=== PATIENT | female | born 1940 | race Asian ===

== ENCOUNTER → 2018-04-08 09:05 | Outpatient (CLI) | payer MEDICARE, SELFPAY ==
[2018-04-08 10:16] LABS: Hemoglobin A1C% w Est Avg Glu 7.3 % (4.0-6.0)
== END ==
PROVIDERS: PCP Internal Medicine; Visit Provider Internal Medicine
DX: E11.9 Type 2 diabetes mellitus without complications (principal)
CPT/HCPCS: 36415; 83036

== ENCOUNTER → 2018-04-14 13:34 | Outpatient (CLI) | payer MEDICARE, SELFPAY | PROVIDERS: PCP Internal Medicine; Visit Provider Internal Medicine | DX: M85.852 Other specified disorders of bone density and structure, left thigh (principal); Z78.0 Asymptomatic menopausal state | CPT/HCPCS: 77080 ==

== ENCOUNTER → 2018-07-05 08:24 | Outpatient (CLI) | payer MEDICARE, SELFPAY ==
[2018-07-05 09:03] LABS: Hemoglobin A1C% w Est Avg Glu 7.6 % (4.0-6.0)
== END ==
PROVIDERS: PCP Internal Medicine; Visit Provider Internal Medicine
DX: R73.09 Other abnormal glucose (principal)
CPT/HCPCS: 36415; 83036

== ENCOUNTER → 2018-10-11 09:19 | Outpatient (CLI) | payer MEDICARE, SELFPAY ==
[2018-10-11 10:34] LABS: Alanine Aminotransferase 46 IU/L (9-52); Albumin 4.4 g/dL (3.5-5.0); Albumin Globulin Ratio 1.3 (1.0-2.8); Alkaline Phosphatase 52 U/L (38-126); Aspartate Aminotransferase 50 IU/L (14-36); Bilirubin Total 0.6 mg/dL (0.2-1.3); Blood Urea Nitrogen 19 mg/dL (7-17); Calcium 9.5 mg/dL (8.4-10.2); Carbon Dioxide 27 mmol/L (22-32); Chloride 101 mmol/L (98-107); Cholesterol 184 mg/dL (140-199); Estimated Glomerular Filt Rate 53.5 mL/min (>60); Globulin 3.3 g/dL (1.7-4.1); Glucose 147 mg/dL (80-110); HDL Cholesterol 41 mg/dL (40-60); HEMOLYSIS < 15 (0-50); LDL Cholesterol Calculated 75 mg/dL (<100); Potassium 4.2 mmol/L (3.4-5.1); Sodium 138 mmol/L (137-145); Total Protein 7.7 g/dL (6.3-8.2); Triglycerides 339 mg/dL (35-150)
[2018-10-11 10:35] LABS: Hemoglobin A1C% w Est Avg Glu 7.6 % (4.0-6.0)
== END ==
PROVIDERS: PCP Internal Medicine; Visit Provider Internal Medicine
DX: I10 Essential (primary) hypertension (principal); E11.9 Type 2 diabetes mellitus without complications; E78.5 Hyperlipidemia, unspecified
CPT/HCPCS: 36415; 80053; 80061; 83036

== ENCOUNTER → 2019-05-09 07:27 | Outpatient (CLI) | payer MEDICARE, SELFPAY ==
[2019-05-09 08:38] LABS: HEMOLYSIS < 15 (0-50); Sodium 139 mmol/L (137-145)
[2019-05-09 08:40] LABS: Alanine Aminotransferase 38 IU/L (9-52); Aspartate Aminotransferase 51 IU/L (14-36); Blood Urea Nitrogen 17 mg/dL (7-17); Calcium 10.2 mg/dL (8.4-10.2); Carbon Dioxide 28 mmol/L (22-32); Chloride 100 mmol/L (98-107); Cholesterol 154 mg/dL (140-199); Estimated Glomerular Filt Rate 53.5 mL/min (>60); Glucose 186 mg/dL (80-110); HDL Cholesterol 42 mg/dL (40-60); LDL Cholesterol Calculated 64 mg/dL (<100); Potassium 4.6 mmol/L (3.4-5.1); Triglycerides 238 mg/dL (35-150)
== END ==
PROVIDERS: PCP Internal Medicine; Visit Provider Internal Medicine
DX: I10 Essential (primary) hypertension (principal); E78.5 Hyperlipidemia, unspecified
CPT/HCPCS: 36415; 80048; 80061; 84450; 84460

== ENCOUNTER → 2019-11-08 08:42 | Outpatient (CLI) | payer MEDICARE, SELFPAY ==
[2019-11-08 11:07] LABS: Alanine Aminotransferase 33 IU/L (<35); Albumin 4.7 g/dL (3.5-5.0); Albumin Globulin Ratio 1.4 (1.0-2.8); Alkaline Phosphatase 57 U/L (38-126); Aspartate Aminotransferase 48 IU/L (14-36); BUN Creatinine Ratio 13.3 (6-22); Bilirubin Total 0.9 mg/dL (0.2-1.3); Blood Urea Nitrogen 14 mg/dL (7-17); Calcium 10.1 mg/dL (8.4-10.2); Carbon Dioxide 27 mmol/L (22-32); Chloride 100 mmol/L (98-107); Cholesterol 178 mg/dL (140-199); Estimated Glomerular Filt Rate 50.4 mL/min (>60); Globulin 3.4 g/dL (1.7-4.1); Glucose 109 mg/dL (80-110); HDL Cholesterol 45 mg/dL (40-60); HEMOLYSIS < 15 (0-50); LDL Cholesterol Calculated 86 mg/dL (<100); Potassium 4.7 mmol/L (3.4-5.1); Sodium 138 mmol/L (137-145); Total Protein 8.1 g/dL (6.3-8.2); Triglycerides 234 mg/dL (35-150)
[2019-11-08 12:36] LABS: Hemoglobin A1C% w Est Avg Glu 7.7 % (4.0-6.0)
== END ==
PROVIDERS: PCP Internal Medicine; Referring Provider Internal Medicine; Visit Provider Internal Medicine
DX: I10 Essential (primary) hypertension (principal); E78.5 Hyperlipidemia, unspecified; E11.9 Type 2 diabetes mellitus without complications
CPT/HCPCS: 36415; 80053; 80061; 83036

== ENCOUNTER → 2020-02-08 15:56 | Outpatient (CLI) | payer MEDICARE, SELFPAY ==
[2020-02-08 17:24] LABS: Creatinine Urine Random 59.1 mg/dL
[2020-02-08 17:25] LABS: Microalbumi Creatinin Ratio Ur 30.4 ug/mg CR (<30); Microalbumin Urine Random 1.8 mg/dL (0-1.6)
[2020-02-09 15:20] LABS: Hemoglobin A1C% w Est Avg Glu 7.8 % (4.0-6.0)
== END ==
PROVIDERS: PCP Internal Medicine; Referring Provider Internal Medicine; Visit Provider Internal Medicine
DX: E11.9 Type 2 diabetes mellitus without complications (principal)
CPT/HCPCS: 36415; 82043; 82570; 83036

== ENCOUNTER → 2020-03-01 16:10 | Outpatient (ROUT) | payer MEDICARE, SELFPAY | PROVIDERS: PCP Internal Medicine; Visit Provider Internal Medicine | DX: N39.0 Urinary tract infection, site not specified (principal) | CPT/HCPCS: 87077; 87086; 87186 ==

== ENCOUNTER → 2020-07-30 14:36 | Outpatient (CLI) | payer MEDICARE, SELFPAY ==
[2020-07-30 15:30] LABS: Hemoglobin A1C% w Est Avg Glu 8.3 % (4.0-6.0)
[2020-07-30 16:08] LABS: Creatinine Urine Random 36.5 mg/dL
[2020-07-30 16:10] LABS: Microalbumi Creatinin Ratio Ur 112.3 ug/mg CR (<30); Microalbumin Urine Random 4.1 mg/dL (0-1.6)
== END ==
PROVIDERS: PCP Internal Medicine; Referring Provider Internal Medicine; Visit Provider Internal Medicine
DX: E11.9 Type 2 diabetes mellitus without complications (principal)
CPT/HCPCS: 36415; 82043; 82570; 83036

== ENCOUNTER → 2020-10-25 07:22 | Outpatient (CLI) | payer MEDICARE, SELFPAY ==
[2020-10-25 08:24] LABS: Hemoglobin A1C% w Est Avg Glu 8.4 % (4.0-6.0)
[2020-10-25 08:32] LABS: Alanine Aminotransferase 34 IU/L (<35); Albumin 4.3 g/dL (3.5-5.0); Albumin Globulin Ratio 1.3 (1.0-2.8); Alkaline Phosphatase 69 U/L (38-126); Aspartate Aminotransferase 44 IU/L (14-36); BUN Creatinine Ratio 15.4 (6-22); Bilirubin Total 0.6 mg/dL (0.2-1.3); Blood Urea Nitrogen 16 mg/dL (7-17); Calcium 10.1 mg/dL (8.4-10.2); Carbon Dioxide 28 mmol/L (22-32); Chloride 102 mmol/L (98-107); Cholesterol 170 mg/dL (140-199); Estimated Glomerular Filt Rate 50.9 mL/min (>60); Globulin 3.2 g/dL (1.7-4.1); Glucose 126 mg/dL (80-110); HDL Cholesterol 45 mg/dL (40-60); HEMOLYSIS < 15 (0-50); LDL Cholesterol Calculated 78 mg/dL (<100); Potassium 4.4 mmol/L (3.4-5.1); Sodium 137 mmol/L (137-145); Total Protein 7.5 g/dL (6.3-8.2); Triglycerides 235 mg/dL (35-150)
== END ==
PROVIDERS: PCP Internal Medicine; Referring Provider Internal Medicine; Visit Provider Internal Medicine
DX: E11.40 Type 2 diabetes mellitus with diabetic neuropathy, unspecified (principal); E78.5 Hyperlipidemia, unspecified; I10 Essential (primary) hypertension
CPT/HCPCS: 36415; 80053; 80061; 83036

== ENCOUNTER → 2021-04-27 08:23 | Outpatient (CLI) | payer MEDICARE, SELFPAY ==
[2021-04-27 09:36] LABS: Hemoglobin A1C% w Est Avg Glu 7.7 % (4.0-6.0)
== END ==
PROVIDERS: PCP Internal Medicine; Referring Provider Internal Medicine; Visit Provider Internal Medicine
DX: E11.40 Type 2 diabetes mellitus with diabetic neuropathy, unspecified (principal)
CPT/HCPCS: 36415; 83036

== ENCOUNTER 2022-01-09 21:30 | Emergency (ER) | payer MEDICARE, SELFPAY ==
[2022-01-09 21:38] VITALS: BP 195/84; PULSE 76; RESP 16; TEMP 36.6; O2SAT 100; BMI 22.7
--- NOTE | 2022-01-09 21:47 | DI.RAD.S_ITS ---
PROCEDURE: XR CHEST 1V INDICATIONS: chest pain TECHNIQUE: One view of the chest was acquired. COMPARISON: [facility], , CHEST 2 VIEW, 12/26/2013, 9:36. FINDINGS: Surgical changes and devices: None. Lungs and pleura: Lungs are clear. No pleural effusions or pneumothorax. Mediastinum: Mediastinal contours appear normal. Heart size is normal. Bones and chest wall: No suspicious bony lesions. Overlying soft tissues redemonstrate peripherally calcified bilateral breast implants. IMPRESSION: 1. No acute cardiopulmonary disease. Dictated by: Nolberto Dumont M.D. on 01/09/2022 at 22:38 Approved by: Nolberto Dumont M.D. on 01/09/2022 at 22:39
[2022-01-09 22:01] VITALS: PULSE 74; RESP 19; O2SAT 99
[2022-01-09 22:02] VITALS: BP 171/79; PULSE 74; RESP 17; O2SAT 98
[2022-01-09 22:08] LABS: Add Manual Diff / Slide Review NO; Alanine Aminotransferase 49 IU/L (<35); Albumin 4.3 g/dL (3.5-5.0); Albumin Globulin Ratio 1.3 (1.0-2.8); Alkaline Phosphatase 54 U/L (38-126); Aspartate Aminotransferase 63 IU/L (14-36); BUN Creatinine Ratio 22.3 (6-22); Basophils Absolute Auto 0 /uL (0-100); Basophils Percent Auto 0.7 % (0-2); Bilirubin Total 0.5 mg/dL (0.2-1.3); Blood Urea Nitrogen 23 mg/dL (7-17); Calcium 9.1 mg/dL (8.4-10.2); Carbon Dioxide 26 mmol/L (22-32); Chloride 104 mmol/L (98-107); Creatine Kinase 494 U/L (30-135); Eosinophils Absolute Auto 100 /uL (0-450); Estimated Glomerular Filt Rate 54 mL/min (>60); Globulin 3.4 g/dL (1.7-4.1); Glucose 168 mg/dL (80-110); HEMOLYSIS < 15 (0-50); Hematocrit 36.2 % (36-46); Hemoglobin 12.6 g/dL (12.0-16.0); Lipase 170 U/L (23-300); Lymphocytes Absolute Auto 2100 /uL (1100-4500); Lymphocytes Percent Auto 37.8 % (25-40); Magnesium 1.8 mg/dL (1.6-2.3); Mean Corpuscular HGB Conc 34.8 % (30-36); Mean Corpuscular Hemoglobin 31.3 PG (26-34); Mean Corpuscular Volume 90.1 fL (80-100); Monocytes Absolute Auto 500 /uL (0-900); Monocytes Percent Auto 9.5 % (3-14); Neutrophils Absolute Auto 2800 /uL (1500-7000); Platelet Count 246 X10^3/uL (150-400); Potassium 4.5 mmol/L (3.4-5.1); Red Blood Cell Count 4.02 X10^6/uL (4.0-5.2); Red Cell Distribution Width 13.3 % (11.6-14.8); Sodium 138 mmol/L (137-145); Total Protein 7.7 g/dL (6.3-8.2); White Blood Cell Count 5.5 X10^3/uL (4.5-11.0)
[2022-01-09 22:19] LABS: Troponin I < 0.012 ng/mL (0.01-0.034)
[2022-01-09 22:23] LABS: CKMB % Relative Index 1.3 % (1.5-5.0); Creatine Kinase MB 6.47 ng/mL (<2.37)
[2022-01-09 22:30] VITALS: BP 172/72; PULSE 70; RESP 12; O2SAT 100
[2022-01-09 23:00] VITALS: BP 191/79; PULSE 68; RESP 16; O2SAT 95
[2022-01-09 23:30] VITALS: BP 170/74; PULSE 67; RESP 15; O2SAT 95
[2022-01-10] VITALS: BP 166/77; PULSE 64; RESP 17; O2SAT 100
[2022-01-10 00:30] VITALS: BP 169/78; PULSE 65; RESP 23; O2SAT 100
[2022-01-10 01:00] VITALS: BP 177/79; PULSE 69; RESP 18; O2SAT 100
--- NOTE | 2022-01-10 01:04 | ED_ITS ---
HPI - Chest Pain General Chief Complaint: Chest Pain Stated Complaint: fall, chest pain, dmII Time Seen by Provider: 01/10/22 01:04 Source: patient Mode of arrival: Ambulatory Limitations: no limitations History of Present Illness HPI narrative: 81-year-old will with a history of diabetes, hyperlipidemia, hypothyroidism, no prior history of stroke or heart attack presents complaining of chest pain. She describes it as a single fleeting episode occurring at 5:00 p.m. this afternoon while she was sitting down. It started in her central chest radiating up to both shoulders and then resolved. She has not having recurrent symptoms. She noted that her blood pressure was slightly elevated time of 155/95. She describes node dyspnea, reflux symptoms. 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 She states that she has not yet taken her blood pressure medications, Micardis 40 mg, today either. She is having no additional symptoms or complaints at this point. No recent fevers, cough, chills, palpitations, vomiting, diarrhea, abdominal pain, lower extremity edema, headaches or acute neurologic symptoms. Related Data Home Medications Medication Instructions Recorded Confirmed CYANOCOBALAMIN (VITAMIN B-12) 1,000 mcg PO QDAY #0 05/18/12 GlyBURIDE (DIABETA) 10 mg PO QDAY #0 05/18/12 fenofibrate nanocrystallized 145 145 mg PO QDAY #0 05/18/12 mg tablet (Tricor) metformin 1,000 mg tablet 1,000 mg PO BIDCC #0 05/18/12 (Glucophage) paroxetine HCl 20 mg tablet (Paxil) 20 mg PO QDAY #0 05/18/12 telmisartan 40 mg tablet (Micardis) 40 mg PO QDAY #0 05/18/12 Allergies Allergy/AdvReac Type Severity Reaction Status Date / Time soy Allergy Mild SOY MILK Unverified 12/02/17 11:54 codeine AdvReac Unknown Unverified 12/02/17 11:54 Review of Systems Review of Systems Narrative: Remainder of complete review of systems is otherwise unremarkable except for that included in the HPI. Patient History Medical History Diabetes Hyperlipidemia Hypertension Ovarian cancer Social History Smoking Status: Never smoker Smoking Status: Never smoker alcohol intake frequency: 0-2 drinks per day Substance Use Type: does not use Exam Initial Vital Signs Initial Vital Signs: Vital Signs Temperature 97.8 F 01/09/22 21:38 Pulse Rate 76 01/09/22 21:38 Respiratory Rate 16 01/09/22 21:38 Blood Pressure 195/84 H 01/09/22 21:38 Pulse Oximetry 100 01/09/22 21:38 General: Healthy appearing, in no acute distress. Able to give a complete and coherent history. Well-nourished well-developed HEENT: Moist mucous membranes, normal sclera with reactive pupils, Neck: No JVD, supple Respiratory: Lungs are clear to auscultation, no wheezing no rales no rhonchi. Full and symmetrical air movement Cardiac: Regular rate and rhythm no murmurs no bruits Abdomen: Soft, nontender, good bowel tones, no flank pain Skin: Warm and dry, no rashes Neurologic: Grossly neurologically intact with no obvious asymmetries or abnormalities Extremities: No trauma, well perfused Psych: Cooperative, appropriate insight and affect Course Orders Ordered: ED Orders 01/09/22 21:47 XR chest 1V Stat 01/09/22 21:48 Complete Blood Count AUTO DIFF Stat Comprehensive Metabolic Panel Stat Lipase Stat Magnesium Stat Troponin & CK Cardiac Panel Stat 01/09/22 21:53 EKG-12 Lead Stat Vital Signs Vital signs: Vital Signs - 8 hr 01/09/22 21:38 Temperature 97.8 F Pulse Rate 76 Respiratory Rate 16 Blood Pressure 195/84 H Pulse Oximetry 100 MDM - Chest Pain Lab Data Result diagrams: 01/09/22 21:48 01/09/22 21:48 Labs: Lab Results 01/09/22 01/09/22 Range/Units 21:48 21:48 WBC 5.5 (4.5-11.0) X10^3/uL RBC 4.02 (4.0-5.2) X10^6/uL Hgb 12.6 (12.0-16.0) g/dL Hct 36.2 (36-46) % MCV 90.1 (80-100) fL MCH 31.3 (26-34) PG MCHC 34.8 (30-36) % RDW 13.3 (11.6-14.8) % Plt Count 246 (150-400) X10^3/uL Neut % (Auto) 51.0 (50-75) % Lymph % (Auto) 37.8 (25-40) % Davidson % (Auto) 9.5 (3-14) % Eos % (Auto) 1.0 L (2-4) % Baso % (Auto) 0.7 (0-2) % Neut # (Auto) 2800 (1581-7201) /uL Lymph # (Auto) 2100 (1693-5226) /uL Davidson # (Auto) 500 (0-900) /uL Eos # (Auto) 100 (0-450) /uL Baso # (Auto) 0 (0-100) /uL Sodium 138 (137-145) mmol/L Potassium 4.5 (3.4-5.1) mmol/L Chloride 104 (98-107) mmol/L Carbon Dioxide 26 (22-32) mmol/L BUN 23 H (7-17) mg/dL Creatinine 1.03 (0.52-1.04) mg/dL Estimated GFR 54 L (>60) mL/min BUN/Creatinine Ratio 22.3 H (6-22) Glucose 168 H (80-110) mg/dL Calcium 9.1 (8.4-10.2) mg/dL Magnesium 1.8 (1.6-2.3) mg/dL Total Bilirubin 0.5 (0.2-1.3) mg/dL AST 63 H (14-36) IU/L ALT 49 H (<35) IU/L Alkaline Phosphatase 54 (38-126) U/L Total Creatine Kinase 494 H (30-135) U/L CK-MB (CK-2) 6.47 H (<2.37) ng/mL CK-MB (CK-2) Rel Index 1.3 L (1.5-5.0) % Troponin I < 0.012 (0.01-0.034) ng/mL Total Protein 7.7 (6.3-8.2) g/dL Albumin 4.3 (3.5-5.0) g/dL Globulin 3.4 (1.7-4.1) g/dL Albumin/Globulin Ratio 1.3 (1.0-2.8) Lipase 170 (23-300) U/L Imaging Data Chest x-ray: Radiologist's Impression: FINDINGS:? ? Surgical changes and devices:? None.? ? Lungs and pleura:? Lungs are clear.? No pleural effusions or pneumothorax.? ? Mediastinum:? Mediastinal contours appear normal.? Heart size is normal.? ? Bones and chest wall:? No suspicious bony lesions.? Overlying soft tissues redemonstrate peripherally calcified bilateral breast implants. ? IMPRESSION:? ? 1.? No acute cardiopulmonary disease. ? ? ? Dictated by: Nolberto Dumont M.D. on 01/09/2022 at 22:38? ?? ECG Data Interpretation: Sinus rhythm at a rate of 73 Normal interval, normal axis No acute ischemic changes MDM Narrative Medical decision making narrative: 81-year-old woman with multiple risk factors for cardiac disease presents after a fleeting episode of central chest pain. No recurrence. Entire workup is unremarkable with the exception of mildly elevated blood pressure with her blood pressure medication skipped today. No evidence of acute coronary syndrome, congestive heart failure, pneumothorax, pulmonary infiltrates, pneumonia, no concern for dissection with a normal diameter mediastinum. At this point reassurance is given it is safe for home discharge. I did recommend that she take her Micardis when she gets home this evening. I also suggested that she follow-up with her primary care physician. Discharge Plan Departure Patient Disposition: Home Clinical Impression: Atypical chest pain Hypertension Qualifiers: Hypertension type: primary hypertension Qualified Code(s): I10 - Essential (primary) hypertension Instructions: DI for Atypical Chest Pain Activity Restrictions/Additional Instructions: Thank you for coming in today With that fleeting episode of chest pain I am not finding any life-threatening diagnoses. Specifically you are not having a heart attack, you do not have pneumonia, there is no collapsed lung and there is no reason for hospitalization or further workup at this time. When you get home this evening, please take your Micardis/telmisartan/blood pressure medication. Please continue all of your usual medications. If you have recurrent symptoms, new findings or other concerns, please return to the ER Prescriptions: No Action metformin [Glucophage] 1,000 MG tablet 1,000 mg PO BIDCC Qty: 0 0RF paroxetine HCl [Paxil] 20 MG tablet 20 mg PO QDAY Qty: 0 0RF telmisartan [Micardis] 40 MG tablet 40 mg PO QDAY Qty: 0 0RF fenofibrate nanocrystallized [Tricor] 145 MG tablet 145 mg PO QDAY Qty: 0 0RF CYANOCOBALAMIN (VITAMIN B-12) 1,000 mcg PO QDAY Qty: 0 0RF GlyBURIDE (DIABETA) 10 mg PO QDAY Qty: 0 0RF Referrals: Gila Reyna MD [Primary Care Provider] -
[2022-01-10 01:30] VITALS: PULSE 64; RESP 21; O2SAT 100
[2022-01-10 01:31] VITALS: BP 171/75; PULSE 64; RESP 11; O2SAT 99
== END 2022-01-10 01:41 | disposition home or self-care (01) ==
PROVIDERS: Emergency Provider Emergency Medicine; PCP Internal Medicine
DX: R07.89 Other chest pain (principal); I10 Essential (primary) hypertension
CPT/HCPCS: 36415; 71045; 80053; 82550; 82553; 83690; 83735; 84484; 85025; 93005; 93010; 99283; 99284

== ENCOUNTER → 2022-02-19 07:38 | Outpatient (CLI) | payer MEDICARE, SELFPAY ==
--- NOTE | 2022-02-19 07:40 | DI.US.S_ITS ---
PROCEDURE: US ABDOMEN LIMITED INDICATIONS: RUQ PAIN TECHNIQUE: Real-time scanning was performed of the abdominal and retroperitoneal organs, with image documentation. COMPARISON: None. FINDINGS: Liver: Echogenic. No suspicious focal lesion visualized. Liver length of 13.0 cm. Gallbladder: No stones, wall thickening, or sonographic Washington's sign. Biliary ducts: Intrahepatic bile ducts are non-dilated. Extrahepatic bile duct caliber measures 3 mm. Normal is 6-7 mm or less in diameter, or 10 mm or less post-cholecystectomy. Pancreas: Visualized portions of the pancreas are sonographically normal. IMPRESSION: 1. No cholelithiasis or evidence of acute cholecystitis. 2. The liver is echogenic, a nonspecific finding commonly seen in the setting of steatosis. Dictated by: Tyler Dunaway M.D. on 02/19/2022 at 12:38 Approved by: Tyler Dunaway M.D. on 02/19/2022 at 12:43
== END ==
PROVIDERS: PCP Internal Medicine; Referring Provider Internal Medicine; Visit Provider Internal Medicine
DX: R10.13 Epigastric pain (principal); R10.11 Right upper quadrant pain
CPT/HCPCS: 76705

== ENCOUNTER 2023-04-25 11:20 | Emergency (ER) | payer OTHER, SELFPAY ==
[2023-04-25] VITALS (22 sets, daily range): BP systolic 133–180; BP diastolic 65–83; PULSE 65–87; RESP 12–28; TEMP 36.5; O2SAT 95–100
--- NOTE | 2023-04-25 11:25 | DI.RAD.S_ITS ---
PROCEDURE: XR PELVIS 1-2V INDICATIONS: trauma TECHNIQUE: 1 view(s) of the pelvis acquired. COMPARISON: [facility], CR, XR TIBIA FIBULA LT 2V, 04/25/2023, 11:30. [facility], CR, XR CHEST 1V, 04/25/2023, 11:30. [facility], CR, PELVIS WITH BILATERAL HIPS, 10/25/2012, 15:34. FINDINGS: Bones: No fractures or dislocations. No suspicious bony lesions. Degenerative changes are seen, particularly involving the visualized lower lumbar spine. Soft tissues: Visualized bowel gas pattern is normal. No suspicious soft tissue calcifications. IMPRESSION: No displaced fracture can be seen on this plain film study. Dictated by: Paulie James M.D. on 04/25/2023 at 10:57 Approved by: Paulie James M.D. on 04/25/2023 at 10:57
--- NOTE | 2023-04-25 11:25 | DI.RAD.S_ITS ---
PROCEDURE: XR TIBIA FIBULA LT 2V INDICATIONS: trauma, bruising, pain TECHNIQUE: 2 views of the tibia and fibula were acquired. COMPARISON: [facility], CR, XR CHEST 1V, 04/25/2023, 11:30. [facility], CR, XR PELVIS 1-2V, 04/25/2023, 11:30. FINDINGS: Bones: No fractures or dislocations. No suspicious bony lesions. Age-appropriate bony degenerative changes are seen. Soft tissues: No suspicious soft tissue calcifications or masses. IMPRESSION: Negative for displaced fracture. Dictated by: Paulie James M.D. on 04/25/2023 at 10:55 Approved by: Paulie James M.D. on 04/25/2023 at 10:56
--- NOTE | 2023-04-25 11:25 | DI.RAD.S_ITS ---
PROCEDURE: XR CHEST 1V INDICATIONS: trauma TECHNIQUE: One view of the chest was acquired. COMPARISON: [facility], , CHEST 2 VIEW, 12/26/2013, 9:36. [facility], CR, XR TIBIA FIBULA LT 2V, 04/25/2023, 11:30. [facility], CR, XR PELVIS 1-2V, 04/25/2023, 11:30. [facility], CR, XR CHEST 1V, 01/09/2022, 22:03. FINDINGS: Surgical changes and devices: Rim calcified mammoplasty implants are seen. Lungs and pleura: Lungs are clear. No pleural effusions or pneumothorax. Mediastinum: The cardiac contours are within normal limits. The aorta demonstrates calcification and tortuosity. Bones and chest wall: No displaced rib fracture is identified. No suspicious bony lesions. Age-appropriate bony degenerative changes are seen. Overlying soft tissues appear unremarkable. IMPRESSION: No displaced rib fracture is seen. No pneumothorax. Dictated by: Paulie James M.D. on 04/25/2023 at 10:56 Approved by: Paulie James M.D. on 04/25/2023 at 10:57
--- NOTE | 2023-04-25 11:26 | DI.CT.S_ITS ---
PROCEDURE: CT HEAD/BRAIN WO CON INDICATIONS: Trauma TECHNIQUE: Noncontrast 4.5 mm thick angled axial sections acquired from the foramen magnum to the vertex, with coronal and sagittal reformats. For radiation dose reduction, the following was used: automated exposure control, adjustment of mA and/or kV according to patient size. COMPARISON: [facility], MR, BRAIN WITH AND WITHOUT CONTRAS, 03/02/2009, 7:04. [facility], CT, CT CERVICAL SPINE WO CON, 04/25/2023, 11:44. FINDINGS: Image quality: Excellent. CSF spaces: Basal cisterns are patent. No extra-axial fluid collections. The ventricles are symmetric in size and shape. Brain: No intracranial bleeds or masses. There is cerebral volume loss for age, with resultant ventricular and sulcal prominence. There are periventricular and deep white matter chronic small vessel ischemic changes. There is intracranial internal carotid artery atherosclerosis. Skull and face: Calvarium and visualized facial bones appear intact, without suspicious lesions. Incidental note is made of hyperostosis frontalis. This is not considered to be pathologic in a woman of this age. Sinuses: Visualized sinuses and mastoids are clear. IMPRESSION: No acute intracranial hemorrhage is seen. No acute intracranial process is seen. Dictated by: Paulie James M.D. on 04/25/2023 at 11:23 Approved by: Paulie James M.D. on 04/25/2023 at 11:24
--- NOTE | 2023-04-25 11:26 | DI.CT.S_ITS ---
PROCEDURE: CT CERVICAL SPINE WO CON INDICATIONS: Trauma TECHNIQUE: Noncontrast 3 mm thick sections acquired from the skull base to the T4 level. Sagittal and coronal reformats were then constructed. For radiation dose reduction, the following was used: automated exposure control, adjustment of mA and/or kV according to patient size. COMPARISON: [facility], CT, CT HEAD/BRAIN WO CON, 04/25/2023, 11:44. [facility], CT, CT CHEST ABD PEL W CON, 04/25/2023, 11:44. [facility], CR, XR PELVIS 1-2V, 04/25/2023, 11:30. [facility], CR, XR CHEST 1V, 04/25/2023, 11:30. [facility], CR, XR TIBIA FIBULA LT 2V, 04/25/2023, 11:30. [facility], CT, C-SPINE WITHOUT CONTRAST, 12/26/2013, 9:25. FINDINGS: Image quality: Excellent. Bones: No fractures or dislocations. Visualized superior ribs are intact. There is vertebral body fusion seen at C5-C6. Mild disc space narrowing can be seen at C4-C5 and at C6-C7. Partially bridging anterior osteophytes can be seen at C4-C5, C6-C7, C7-T1, and T1-T2. 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 A T2 vertebral body hemangioma is incidentally noted. Soft tissues: Prevertebral soft tissues are normal in thickness. No paravertebral hematomas. No apical pneumothoraces. IMPRESSION: Negative for acute fracture. C5-C6 vertebral body fusion, as before. 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 Dictated by: Paulie James M.D. on 04/25/2023 at 12:30 Approved by: Paulie James M.D. on 04/25/2023 at 12:31
--- NOTE | 2023-04-25 11:26 | DI.CT.S_ITS ---
PROCEDURE: CT CHEST ABD PEL W CON INDICATIONS: Trauma TECHNIQUE: After the administration of intravenous contrast, 5 mm thick sections acquired from the lung apices to the symphysis. 2.5 mm thick coronal and sagittal reformats were acquired. Additional 7 mm thick coronal maximum intensity projection (MIP) reformats acquired through the lungs. Optional 10-minute delayed imaging may be performed from the kidneys to the bladder. For radiation dose reduction, the following was used: automated exposure control, adjustment of mA and/or kV according to patient size. COMPARISON: None. FINDINGS: Image quality: Excellent. CHEST: Lungs: No pulmonary contusions or lacerations. No acute airspace opacities. No pneumothorax or hemothorax. Central and peripheral airways appear patent and normal in caliber. Mediastinum: No mediastinal hematomas. Heart size is normal. No pericardial effusion. Thoracic aorta and pulmonary arteries demonstrate normal size and enhancement. No mediastinal or hilar adenopathy. Esophagus is normal in caliber. No hiatal hernia. Chest wall: No rib fractures. No subcutaneous emphysema. No axillary or supraclavicular adenopathy. Thyroid gland demonstrates no significant abnormality. Rim calcified mammoplasty implants can be seen. ABDOMEN: Solid organs: Liver is normal in size and enhancement, without lacerations. Gallbladder wall is not thickened. Biliary system is non-dilated. Pancreas enhances normally, without transection. Spleen is normal in size and enhancement, without lacerations. No adrenal hematomas. Both kidneys enhance normally, without hydronephrosis or lacerations. Simple right renal cyst seen medially and inferiorly measuring 4.5 cm. Peritoneum and bowel: No free fluid or air. Unenhanced bowel loops demonstrate normal wall thickness and caliber. A normal appendix is noted. Nodes and vessels: No retroperitoneal or mesenteric adenopathy. Aorta and inferior vena cava are normal in size and enhancement. Miscellaneous: No ventral hernias. PELVIS: Genitourinary: Bladder wall thickness is normal. This patient is status post hysterectomy. No adnexal masses are seen. Miscellaneous: No inguinal hernias or adenopathy. Bones: Degenerative changes are seen throughout, including involving the shoulders and the lower lumbar spine. Pelvic ring and hip joints appear intact. No vertebral compression fractures. IMPRESSION: No significant acute posttraumatic abnormality can be seen. Additional findings: Simple right renal cyst Normal appendix Hysterectomy Dictated by: Paulie James M.D. on 04/25/2023 at 12:31 Approved by: aPulie James M.D. on 04/25/2023 at 12:35
[2023-04-25 11:42] LABS: Prothrombin Time 11.6 SECONDS (10.1-12.7)
[2023-04-25 11:45] LABS: Add Manual Diff / Slide Review NO; Basophils Absolute Auto 0 /uL (0-100); Basophils Percent Auto 0.5 % (0-2); Eosinophils Absolute Auto 0 /uL (0-450); Eosinophils Percent Auto 0.4 % (2-4); Hematocrit 41.6 % (36-46); Hemoglobin 14.2 g/dL (12.0-16.0); Lactate (Lactic Acid) 3.1 mmol/L (0.7-2.1); Lymphocytes Absolute Auto 1800 /uL (1100-4500); Lymphocytes Percent Auto 30.4 % (25-40); Mean Corpuscular HGB Conc 34.1 % (30-36); Mean Corpuscular Hemoglobin 31.2 PG (26-34); Mean Corpuscular Volume 91.6 fL (80-100); Monocytes Absolute Auto 500 /uL (0-900); Monocytes Percent Auto 7.7 % (3-14); Neutrophils Absolute Auto 3700 /uL (1500-7000); PTT Partial Thromboplastin Tim 29 SECONDS (26-36); Platelet Count 191 X10^3/uL (150-400); Red Blood Cell Count 4.54 X10^6/uL (4.0-5.2)
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
[2023-04-25 11:47] LABS: Alanine Aminotransferase 25 IU/L (<35); Albumin 4.4 g/dL (3.5-5.0); Albumin Globulin Ratio 1.3 (1.0-2.8); Alkaline Phosphatase 76 U/L (38-126); Aspartate Aminotransferase 36 IU/L (14-36); BUN Creatinine Ratio 20.9 (6-22); Bilirubin Total 0.5 mg/dL (0.2-1.3); Blood Urea Nitrogen 19 mg/dL (7-17); Calcium 9.5 mg/dL (8.4-10.2); Carbon Dioxide 29 mmol/L (22-32); Chloride 100 mmol/L (98-107); Creatine Kinase 88 U/L (30-135); Estimated Glomerular Filt Rate > 60 mL/min (>60); Ethanol (ETOH) < 10 mg/dL; Globulin 3.5 g/dL (1.7-4.1); Glucose 241 mg/dL (80-110); HEMOLYSIS < 15 (0-50); Lipase 349 U/L (23-300); Potassium 4.7 mmol/L (3.4-5.1); Sodium 137 mmol/L (137-145); Total Protein 7.9 g/dL (6.3-8.2)
[2023-04-25 11:58] LABS: Troponin I < 0.012 ng/mL (0.01-0.034)
[2023-04-25] MEDS: ACETAMINOPHEN 325 MG TABLET 975 MG PO (13:07)
--- NOTE | 2023-04-25 13:19 | DI.RAD.S_ITS ---
PROCEDURE: XR SHOULDER LT MIN 2V INDICATIONS: trauma TECHNIQUE: 2 views of the shoulder were acquired. COMPARISON: None. FINDINGS: Bones: No acute fracture or dislocation. Possible old glenoid injury. No suspicious bony lesions. Moderate acromioclavicular and glenohumeral joint degeneration. Visualized ribs appear intact. Soft tissues: No suspicious soft tissue calcifications. IMPRESSION: 1. No acute fracture or dislocation. If clinical symptoms persist or clinical suspicion for pathology is high, a repeat examination in 7-10 days, or advanced imaging such as CT or MRI is suggested for further evaluation. 2. Question old glenoid injury. Consider nonurgent shoulder MRI arthrogram if clinically indicated. Dictated by: Stanley Palmer M.D. on 04/25/2023 at 14:02 Approved by: Stanley Palmer M.D. on 04/25/2023 at 14:06
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
[2023-04-25 13:29] LABS: Reflexed Lactate in 2 Hours Y
[2023-04-25 14:00] LABS: Lactate 2HR (Lactic Acid Rflx) 1.8 mmol/L (0.7-2.1)
[2023-04-25 15:15] LABS: UR Morphine/Opiate cutoff 300 Negative (Negative); Ur Creatinine Normal (Normal); Ur Specific Gravity Normal (Normal); Urine Amphetamines Negative (Negative); Urine Barbiturates Negative (Negative); Urine Benzodiazepines Negative (Negative); Urine Cocaine Negative (Negative); Urine MDMA Negative (Negative); Urine Methadone Negative (Negative); Urine Methamphetamines Negative (Negative); Urine Oxycodone Negative (Negative); Urine Phencyclidine Negative (Negative); Urine Tetrahydrocannabinol Negative (Negative); Urine Tricyclic Antidepressant Negative (Negative); Urine pH Normal (Normal)
== END 2023-04-25 16:04 | disposition home or self-care (01) ==
PROVIDERS: Emergency Provider Emergency Medicine
DX: S49.91XA Unspecified injury of right shoulder and upper arm, initial encounter (principal); S49.92XA Unspecified injury of left shoulder and upper arm, initial encounter; S09.90XA Unspecified injury of head, initial encounter; V89.2XXA Person injured in unspecified motor-vehicle accident, traffic, initial encounter
CPT/HCPCS: 36415; 70450; 71045; 71260; 72125; 72170; 73030; 73590; 74177; 80053; 80305; 80320; 81003; 82550; 82962; 83605; 83690; 84484; 85025; 85610; 85730; 86850; 86900; 86901; 93005; 99285; Q9967